=== PATIENT | male | born 1945 | race Caucasian/White ===

== ENCOUNTER 2016-09-21 07:27 | Outpatient (CLI) | payer OTHER, MEDICARE ==
--- NOTE | 2016-09-21 08:13 | DIAGNOSTIC IMAGING REPORT ---
PROCEDURE: US ABDOMEN VASCULAR-AAA INDICATION: AORTIC ANEURYSM TECHNIQUE: Cosme scale, color Doppler and spectral ultrasound of the abdominal aorta. COMPARISON: Abdominal aorta ultrasound FINDINGS: Moderate atherosclerosis. Maximal diameter: Proximal 2.9 cm, mid 2.6 cm and distal 3.4 cm (previously 3.2 cm). Right iliac artery diameter measures 1.6 cm and left iliac artery 1.5 cm IMPRESSION: 1. 3.4 cm distal abdominal aortic aneurysm (previously 3.2 cm).
== END 2016-09-21 23:00 ==
LOC: US SRH 07:27
DX: I71.4 Abdominal aortic aneurysm, without rupture (principal)